=== PATIENT | female | born 1950 | race Caucasian/White ===

== ENCOUNTER 2017-12-27 09:44 | Outpatient (REF) | payer MEDICARE, SELFPAY ==
[2017-12-27 13:14] LABS: ALT 38 U/L (12-78); AST 33 U/L (15-37); Albumin 4.1 g/dL (3.4-5.0); Alkaline Phosphatase 108 U/L (46-116); Anion Gap 12.5 mmol/L (3-11); BUN 12 mg/dL (7-18); Bilirubin, Total 0.4 mg/dL (0.2-1.0); CO2 26.5 mmol/L (21.0-32.0); CREATININE 0.83 mg/dL (0.55-1.02); Calcium 9.5 mg/dL (8.5-10.1); Chloride 104 mmol/L (98-107); Cholesterol 164 mg/dL (50-200); Glucose 103 mg/dL (70-100); HDL Cholesterol 69 mg/dL (40-60); LDL CHOLESTEROL 78 mg/dL (<100); Sodium 143 mmol/L (136-145); Total Protein 7.2 g/dL (6.4-8.2); Triglyceride 90 mg/dL (30-150)
== END 2017-12-27 10:04 ==
LOC: NCHCN 09:44
PROVIDERS: PCP Nurse Practitioner Primary Care; Visit Provider Family Medicine
DX: E78.5 Hyperlipidemia, unspecified (principal); I10 Essential (primary) hypertension
CPT/HCPCS: 80053; 80061; 83721

== ENCOUNTER 2017-12-30 11:18 | Outpatient (CLI) | payer MEDICARE, SELFPAY ==
[2017-12-30 12:24] LABS: HCT 41.8 % (36.0-46.0); HGB 14.2 g/dL (12.0-15.5); Mean Corpuscular Hemoglobin 33.9 pg (27.0-33.0); Mean Corpuscular Volume 99.8 fL (80-95); Platelet Count 259 x1000/uL (130-400); RBC 4.19 m/cumm (4.00-5.20); RBC Distribution Width 13.1 % (11.7-14.6); White Blood Cell Count 7.24 k/cumm (4.4-10.8)
== END 2017-12-30 11:38 ==
PROVIDERS: PCP Nurse Practitioner Primary Care; Visit Provider Family Medicine
DX: I10 Essential (primary) hypertension (principal)
CPT/HCPCS: 36415; 85027

== ENCOUNTER 2018-01-11 00:32 | Outpatient (CLI) | payer MEDICARE, SELFPAY ==
--- NOTE | 2018-01-11 15:45 | DI.RAD_ITS ---
SYMPTOMS/DIAGNOSIS: MENOPAUSE, Z78.0 DEXA SCAN: Routine examination. Evaluation of the lateral spine shows no compression deformities. Evaluation of the left hip shows a total T score of -1.9 and a Z score of -0.7. This is consistent with osteopenia and an increased fracture risk. Evaluation of the lumbar spine shows a total T score of -0.6 and a Z score of 1.2. This is within normal limits. No evidence of osteoporosis is seen. IMPRESSION: Osteopenia in the left hip.
--- NOTE | 2018-01-11 16:03 | DI.MAMMO_ITS ---
SYMPTOM/DIAGNOSIS: SCREENING, Z12.31 MAMMOGRAMS: Mammograms were interpreted according to the usual protocol including computer analysis with CAD system, tomosynthesis and C view imaging. Comparison is made with prior examinations. Breast density, B. No masses or microcalcifications are seen. There is nothing to suggest malignancy. IMPRESSION: Negative mammogram. Routine screening is recommended. Category 1B. MQSA ASSESSMENT OF FINDINGS: Negative. Category 1. Patient will receive a letter notifying them of these results. BI-RADS category B. There are scattered areas of fibroglandular density.
== END 2018-01-11 00:52 ==
PROVIDERS: PCP Nurse Practitioner Primary Care; Visit Provider Family Medicine
DX: Z12.31 Encounter for screening mammogram for malignant neoplasm of breast (principal); M85.88 Other specified disorders of bone density and structure, other site; Z78.0 Asymptomatic menopausal state
CPT/HCPCS: 77063; 77067; 77080

== ENCOUNTER 2019-01-12 00:47 | Outpatient (CLI) | payer MEDICARE, OTHER, SELFPAY ==
--- NOTE | 2019-01-12 10:30 | DI.US_ITS ---
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 ([place]) Indications: dyspnea on exertion r06.09 Left Ventricle The left ventricle is normal size. The left ventricular systolic function is normal. The left ventric ular ejection fraction is within the normal range. Mild concentric left ventricular hypertrophy. Ther e is discrete upper septal wall thickening There is normal LV segmental wall motion. The left ventric ular diastolic function is normal. LVEF is 60-65%. Right Ventricle Right ventricle is borderline dilated. The right ventricular systolic function is normal. Atria Left atrium is borderline dilated. The coronary sinus appears mildly enlarged. Right atrium is modera tely dilated. Per patient history there is an atrial septal defect patch. There is no color flow acro ss the septum Aortic Valve Aortic valve is trileaflet. There is no aortic valvular stenosis. No aortic regurgitation is present. Mitral Valve Mitral valve leaflets are mildly thickened. No evidence of mitral valve stenosis. Mild mitral regurgi tation. Tricuspid Valve The tricuspid valve leaflets are thickened , but open well. Moderate tricuspid regurgitation. Pulmonic Valve Pulmonic valve is grossly normal in structure. Trace pulmonic regurgitation. Great Vessels The aortic root is normal in size. normal Pericardium There is no pericardial effusion. 2D Dimensions IVSd 1.3 cm F: 0.6-1.0 LA Volume Index A4C 34.0 mL/m2 PWd 1.1 cm F: 0.6 - 1.0 LA Area A4C 17.0 cm2 LVDd 4.7 cm F: 3.9 - 5.3 LVDs 3.1 cm F: 2.2 - 3.5 Aortic Root 3.0 cm F: 2.7 - 3.3 RA Area A4C 13.0 cm2 LVOT 2.1 cm (M/F) 1.5-2.5 LVEF ([facility]'s) 67.9 % F: 54 - 74 LV Volume 54.3 mL F: 46 - 106 LV Volume Index 35.0 mL/m2 F: 29 - 61 FS 33.9 % LV Diastology E Decel Time 220.0 (160-240 msec) E/A Ratio 1.1 MED E' 0.1 (<0.07 m/s) LV E/e MED 13.5 (>14) LAT E' 0.1 (<0.1 m/s) LV E/e LAT 13.9 (>14) Aortic Valve LVOT Peak Jose. 1.2 m/s LVOT Peak Gr. 5.9 mmHg LVOT Mean Gr. 3.0 mmHg LVOT VTI 0.3 m REGGIE (VTI) 2.8 (2.5-4.5 cm2) REGGIE (VTI) Index 1.8 cm/m2 Mitral Valve MV E Max Jose. 1.2 (0.4-1.3 m/s) MV A Velocity 1.1 (0.4-1.3 m/s) E/A Ratio 1.0 MV Decel. Time 219.5 (160-240 msec) MV PHT 63.7 msec MVA PHT 3.5 cm2 Pulmonary Valve RVOT Mean Gr. 0.8 mmHg RVOT VTI 0.1 m Tricuspid Valve TR P. Velocity 3.2 m/s TR P. Gradient 42.1 mmHg Conclusion Left Ventricle : The left ventricle is normal size. Mild concentric left ventricular hypertrophy. The re is discrete upper septal wall thickening The left ventricular diastolic function is normal. The le ft ventricular systolic function is normal. The left ventricular ejection fraction is within the norm al range. There is normal LV segmental wall motion. Right Ventricle : Right ventricle is borderline dilated. The right ventricular systolic function is n ormal. Atria : Left atrium is borderline dilated. Right atrium is moderately dilated. Per patient history t here is an atrial septal defect patch. There is no color flow across the septum to suggest residual defect. The coronary sinus is mildly enlarged which can be seen with right atrial pathology/enlargem ent. Without a bubble study it is unclear whether patient has persistent left-sided SVC versus right atrial enlargement from prior ASD. Aortic Valve : Aortic valve is trileaflet. No aortic regurgitation is present. There is no aortic tony vular stenosis. Mitral Valve : Mitral valve leaflets are mildly thickened. Mild mitral regurgitation. No evidence of mitral valve stenosis. Tricuspid Valve : The tricuspid valve leaflets are thickened , but open well. Moderate tricuspid regu rgitation. Pulmonic Valve : Pulmonic valve is grossly normal in structure. Trace pulmonic regurgitation. Sinus rhythm was present throughout There are no prior echo is available for comparison
== END 2019-01-12 01:07 ==
PROVIDERS: PCP Family Medicine; Visit Provider Family Medicine
DX: R06.09 Other forms of dyspnea (principal); I35.8 Other nonrheumatic aortic valve disorders; I36.1 Nonrheumatic tricuspid (valve) insufficiency; I10 Essential (primary) hypertension
CPT/HCPCS: 93306

== ENCOUNTER 2019-11-20 01:05 | Outpatient (CLI) | payer MEDICARE, SELFPAY ==
--- NOTE | 2019-11-20 | DI.MAMMO_ITS ---
EXAM: MAMMO SCREENING CLINICAL HISTORY: SCREENING, TECHNIQUE: Mammograms were interpreted according to the usual protocol including computer analysis w [employer] CAD system, tomosynthesis and C-view imaging. COMPARISON: 2017 and 2018 FINDINGS: The breasts are composed of scattered fibroglandular densities, Breast Density category B. No suspicious masses or suspicious microcalcifications are seen. No skin thickening or abnormal axillary lymph nodes are seen. There has been no significant change from prior exams. IMPRESSION: BI-RADS Category 1, Negative mammogram Yearly screening mammography is recommended. Breast Density Category B, scattered fibroglandular densities. A negative radiographic report should not delay biopsy if a dominant or clinically suspicious mass is present. Up to ten percent of cancers are not identified on mammography. A negative report may reinforce clinical impression. Adenosis and dense breasts may obscure an underlying neoplasm. False positive reports average 6 to 10%. Patient will receive a letter notifying them of these results.
== END 2019-11-20 01:25 ==
PROVIDERS: PCP Family Medicine; Visit Provider Family Medicine
DX: Z12.31 Encounter for screening mammogram for malignant neoplasm of breast (principal); R92.2 Inconclusive mammogram
CPT/HCPCS: 77063; 77067

== ENCOUNTER 2020-04-11 13:50 | Outpatient (REF) | payer MEDICARE, SELFPAY ==
[2020-04-11 13:53] LABS: HCT 46.2 % (36.0-46.0); MCH 34.9 pg (27.0-33.0); MCHC 34.6 % (32.0-36.0); MCV 100.9 fL (80-95); MPV 10.9 fL (8.0-11.0); Platelet Count 241 10^3/uL (130-400); RBC 4.58 10^6/uL (3.93-5.22); RDW 12.3 % (11.7-14.6); RDW-SD 46.5 fL
[2020-04-11 14:40] LABS: ALT 27 U/L (14-59); AST 23 U/L (15-37); Albumin 4.2 g/dL (3.4-5.0); Alkaline Phosphatase 79 U/L (46-116); BUN 13 mg/dL (7-18); Bilirubin, Total 0.6 mg/dL (0.2-1.0); CREATININE 1.02 mg/dL (0.55-1.02); Calcium 9.3 mg/dL (8.5-10.1); Calculated LDL 81 mg/dL (<100); Chloride 104 mmol/L (98-107); Cholesterol 176 mg/dL (<200); Estimated GFR 54.05 (mL/min/1.73m2); Glucose 95 mg/dL (74-106); HDL Cholesterol 84 mg/dL (40-60); Potassium 3.9 mmol/L (3.5-5.1); Sodium 143 mmol/L (136-145); Total Protein 7.4 g/dL (6.4-8.2); Triglyceride 58 mg/dL (<150)
== END 2020-04-11 14:10 ==
LOC: NCHCN 13:50
PROVIDERS: PCP Family Medicine; Visit Provider Family Medicine
DX: E78.5 Hyperlipidemia, unspecified (principal); I10 Essential (primary) hypertension
CPT/HCPCS: 80053; 80061; 85027

== ENCOUNTER 2021-05-19 09:02 | Outpatient (REF) | payer MEDICARE, SELFPAY ==
[2021-05-19 18:50] LABS: ALT 26 U/L (14-59); AST 21 U/L (15-37); Albumin 4.2 g/dL (3.4-5.0); Alkaline Phosphatase 86 U/L (46-116); Anion Gap 10.9 mmol/L (3-11); BUN 8 mg/dL (7-18); Bilirubin, Total 0.4 mg/dL (0.2-1.0); CO2 27.1 mmol/L (21.0-32.0); Calcium 9.7 mg/dL (8.5-10.1); Calculated LDL 87 mg/dL (<100); Chloride 105 mmol/L (98-107); Cholesterol 191 mg/dL (<200); Estimated GFR 55.14 (mL/min/1.73m2); Glucose 86 mg/dL (74-106); HDL Cholesterol 80 mg/dL (40-60); Potassium 4.3 mmol/L (3.5-5.1); Sodium 143 mmol/L (136-145); Total Protein 7.5 g/dL (6.4-8.2); Triglyceride 122 mg/dL (<150)
[2021-05-19 19:43] LABS: HCT 47.2 % (36.0-46.0); HGB 15.5 g/dL (11.2-15.7); MCH 33.9 pg (27.0-33.0); MCHC 32.8 % (32.0-36.0); MCV 103.3 fL (80-95); RBC 4.57 10^6/uL (3.93-5.22); RDW 12.8 % (11.7-14.6); RDW-SD 49.3 fL; WBC 6.76 10^3/uL (4.4-10.8)
== END 2021-05-19 09:03 | disposition home or self-care (01) ==
LOC: NCHCN 09:02
PROVIDERS: PCP Family Medicine; Visit Provider Family Medicine
DX: E78.5 Hyperlipidemia, unspecified (principal); I10 Essential (primary) hypertension; R51.9 Headache, unspecified
CPT/HCPCS: 80053; 80061; 85027

== ENCOUNTER 2021-06-02 01:16 | Outpatient (CLI) | payer MEDICARE, SELFPAY ==
--- NOTE | 2021-06-02 | DI.MAMMO_ITS ---
Exam(s) MAMMO SCREENING EXAM: MAMMO SCREENING CLINICAL HISTORY: SCREENING MAMMO FOR BREAST CANCER Z12.31 TECHNIQUE: Mammograms were interpreted according to the usual protocol including computer analysis w [employer] CAD system, tomosynthesis and C-view imaging. COMPARISON: 2016 through 2019 FINDINGS: The breasts are composed of scattered fibroglandular densities, Breast Density category B. No suspicious masses or suspicious microcalcifications are seen. No skin thickening or abnormal axillary lymph nodes are seen. There has been no significant change from prior exams. IMPRESSION: BI-RADS Category 1, Negative mammogram Yearly screening mammography is recommended. Breast Density - Category B, scattered fibroglandular densities. A negative radiographic report should not delay biopsy if a dominant or clinically suspicious mass is present. Up to ten percent of cancers are not identified on mammography. A negative report may reinforce clinical impression. Adenosis and dense breasts may obscure an underlying neoplasm. False positive reports average 6 to 10%. Patient will receive a letter notifying them of these results.
== END 2021-06-02 01:36 ==
PROVIDERS: PCP Family Medicine; Visit Provider Family Medicine
DX: Z12.31 Encounter for screening mammogram for malignant neoplasm of breast (principal)
CPT/HCPCS: 77063; 77067

== ENCOUNTER 2022-09-03 02:54 | Outpatient (CLI) | payer MEDICARE, SELFPAY ==
--- NOTE | 2022-09-03 | DI.CTLCSR_ITS ---
Exam(s) CT CHEST LUNG CANCER SCREEN EXAM: CT CHEST LUNG CANCER SCREEN CLINICAL HISTORY: HX OF SMOKING Z87.891 SCREENING FOR LUNG CANCER. TECHNIQUE: Imaging Protocol: Low Dose Technique CONTRAST MATERIAL: None COMPARISON: No exams were available for comparison FINDINGS: CHEST: LUNGS: There is a 1.3 cm partially calcified granuloma in the right lower lobe. No other significant focal right lung findings. The left lung there is some platelike atelectasis in the lingular segmen t basal segments. No ominous pulmonary nodules nor pleural effusions.. There are no confluent infil trates. MEDIASTINUM: There is no obvious hilar nor mediastinal adenopathy. CARDIAC: Cannot be wires. Heart size normal. No pericardial effusion.Caliber of the thoracic aorta is within normal limits. OTHER: Fusion plate in the lower cervical spine.. Thickening of the left adrenal gland noted. Also asymmetric appearance of the partially included left kidney and there is also a nonobstructive calcul us in left kidney. OSSEOUS: No significant osseous lesions.. IMPRESSION: 1. Benign-appearing partially calcified 1.3 cm nodule in the right lower lobe. 2. Atelectasis in the left lung base. No pleural effusions. 3. Lung RADS Cat 2S - Benign Appearance / Behavior: Nodules with a very low likelihood of becoming a clinically active cancer due to size or lack of growth Other findings as above. May require follow-up. Lung-RADS 1.0 CATEGORIES: Category 0 - Prior chest CT exam(s) being located for comparison. Category 1 - Annual screening in 12 months. No nodules or definitely benign nodules. Category 2 - Annual screening in 12 months. Benign appearance. Nodules with low likelihood of becomin g active cancer. Category 3 - 6-month follow-up. Probably benign. Short-term follow-up suggested. Nodules with low lik elihood of becoming active cancer. Category 4A - 3-month follow-up and CT/PET if >8 mm in size. Suspicious finding. Findings which requi re additional testing. Category 4B - Findings which require additional testing and tissue sampling. Category 4X - Category 3 or 4 nodules with additional features or imaging findings that increases the suspicion of malignancy. Modifier S- Potentially clinically significant findings (non lung cancer) RADIATION DOSE DELIVERED: 78.8mGy.cm Total DLP DATA REPOSITORY: All CT scans at this facility are submitted to the National Radiology Data Registry (NRDR) Dose Index Registry (DIR) with the [employer] (ACR). RADIATION OPTIMIZATION: All CT scans at this facility use at least one of these dose optimization te chniques: automated exposure control; mA and/or kV adjustment per patient size (includes targeted exa ms where dose is matched to clinical indication); or iterative reconstruction.
== END 2022-09-03 03:14 ==
LOC: DI 02:54
PROVIDERS: PCP Family Medicine; Visit Provider Family Medicine
DX: Z12.2 Encounter for screening for malignant neoplasm of respiratory organs (principal); Z87.891 Personal history of nicotine dependence; R91.1 Solitary pulmonary nodule
CPT/HCPCS: 71271

== ENCOUNTER 2023-08-06 16:17 | Outpatient (REF) | payer MEDICARE, SELFPAY ==
[2023-08-06 21:06] LABS: HCT 41.6 % (36.0-46.0); MCH 33.9 pg (27.0-33.0); MCHC 33.7 % (32.0-36.0); MCV 101 fL (80-95); MPV 11.2 fL (8.0-11.0); Platelet Count 218 10^3/uL (130-400); RBC 4.13 10^6/uL (3.93-5.22); RDW 12.8 % (11.7-14.6); RDW-SD 47.9 fL; WBC 9.47 10^3/uL (4.4-10.8)
[2023-08-06 21:23] LABS: ALT 26 U/L (14-59); AST 27 U/L (15-37); Albumin 4.6 g/dL (3.4-5.0); Alkaline Phosphatase 61 U/L (46-116); Anion Gap 10.9 mmol/L (3-11); BUN 15 mg/dL (7-18); Bilirubin, Total 0.3 mg/dL (0.2-1.0); CO2 29.1 mmol/L (21.0-32.0); CREATININE 1.1 mg/dL (0.55-1.02); Calculated LDL 170 mg/dL (<100); Chloride 101 mmol/L (98-107); Cholesterol 291 mg/dL (<200); Estimated GFR 54.06 (mL/min/1.73m2); Glucose 92 mg/dL (74-106); HDL Cholesterol 102 mg/dL (40-60); Potassium 4.1 mmol/L (3.5-5.1); Sodium 141 mmol/L (136-145); Total Protein 7.6 g/dL (6.4-8.2); Triglyceride 96 mg/dL (<150)
[2023-08-06 22:02] LABS: Vitamin D 25 Total 72.8 ng/mL (30-100)
== END 2023-08-06 16:18 | disposition home or self-care (01) ==
LOC: NCHCN 16:17
PROVIDERS: PCP Family Medicine; Visit Provider Family Medicine
DX: Z00.00 Encounter for general adult medical examination without abnormal findings (principal); E78.00 Pure hypercholesterolemia, unspecified; R94.4 Abnormal results of kidney function studies; R79.89 Other specified abnormal findings of blood chemistry
CPT/HCPCS: 80053; 80061; 82306; 85027

== ENCOUNTER → 2023-08-26 04:28 | Outpatient (CLI) | payer MEDICARE, SELFPAY ==
--- NOTE | 2023-08-26 | DI.MAMMO_ITS ---
Exam(s) MAMMO SCREENING EXAM: MAMMO SCREENING CLINICAL HISTORY: Z12.31 Screening. TECHNIQUE: Bilateral full field digital CC and MLO mammographic images were obtained with 3D tomosyn thesis and utilizing computer aided detection (CAD). COMPARISON: Prior mammograms were reviewed. FINDINGS: There has been no significant change in the appearance and distribution of the fibroglandular tissue. There are no new spiculated masses nor malignant appearing microcalcification groups. There is no significant architectural distortion nor skin thickening-retraction. IMPRESSION: No radiographic evidence of malignancy. BI-RADS Category 1 - Negative Breast Density - Category B - Scattered areas of fibroglandular density Breast density Category C or D implies that the patient has dense breast tissue. Dense breast tissue can make it harder to find cancer on a mammogram. Dense breast tissue is also associated with an incr eased risk of breast cancer. This information about the result of the mammogram report was provided to the patient to raise their awareness. Use this report when you speak with the patient about their risks for breast cancer, which includes their family history. At that time, you may recommend additional screening tests (Ultrasoun d or MRI) as these tests may add significant information. A negative radiographic report should not delay biopsy if a dominant or clinically suspicious mass is present. Up to ten percent of cancers are not identified on mammography. A negative report may reinforce clinical impression. Adenosis and dense breasts may obscure an underlying neoplasm. False positive reports average 6 to 10%. Patient will receive a letter notifying them of these results.
== END ==
PROVIDERS: PCP Family Medicine; Visit Provider Family Medicine
DX: Z12.31 Encounter for screening mammogram for malignant neoplasm of breast (principal)
CPT/HCPCS: 77063; 77067

== ENCOUNTER 2024-01-13 01:37 | Outpatient (CLI) | payer MEDICARE, SELFPAY ==
--- NOTE | 2024-01-13 | DI.DEXA_ITS ---
Exam(s) XR DEXA BONE DENSITY W/WO MONAE EXAM: XR DEXA BONE DENSITY W/WO MONAE CLINICAL HISTORY: DISORDER BONE DENSITY M85.88 TECHNIQUE: [employer] C densitometer analysis of left hip, lumbar spine and left forearm. Lat eral survey image of the thoracic and lumbar spine. COMPARISON: DX XR DEXA BONE DENSITY W/WO MONAE from 01/11/2018 FINDINGS: Lateral view of the thoracic and lumbar spine shows no evidence of compression fractures. Bone mineral density measurements of the lumbar spine correspond to a total T-score of -0.7, in the normal range. This is not significantly changed from the prior exam. Bone mineral density measurements of the left hip correspond to a total T-score of -2.0. This is no t significantly changed from the prior exam. The femoral neck T-score is -2.0, in the osteopenic ra nge.. Theleft forearm bone mineral density measurements correspond to a T-score of the distal 3rd of -2.7, in the osteoporotic range. This is not significantly changed from prior exam. . IMPRESSION: Normal bone mineral density of the spine. Osteopenia of the hip. Osteoporosis of the forearm.
== END 2024-01-13 01:57 ==
PROVIDERS: PCP Family Medicine; Visit Provider Family Medicine
DX: M85.88 Other specified disorders of bone density and structure, other site (principal)
CPT/HCPCS: 77080

== ENCOUNTER 2024-08-22 18:36 | Outpatient (REF) | payer MEDICARE, SELFPAY ==
[2024-08-22 16:56] LABS: ALT 29 U/L (14-59); AST 27 U/L (15-37); Albumin 4.5 g/dL (3.4-5.0); Alkaline Phosphatase 67 U/L (46-116); Anion Gap 9.2 mmol/L (3-11); BUN 23 mg/dL (7-18); Bilirubin, Total 0.4 mg/dL (0.2-1.0); CO2 29.8 mmol/L (21.0-32.0); CREATININE 0.9 mg/dL (0.55-1.02); Calcium 10.1 mg/dL (8.5-10.1); Calculated LDL 83 mg/dL (<100); Chloride 101 mmol/L (98-107); Cholesterol 202 mg/dL (<200); Estimated GFR 68.35 (mL/min/1.73m2); Glucose 104 mg/dL (74-106); HDL Cholesterol 106 mg/dL (>or=50); Potassium 4.1 mmol/L (3.5-5.1); Sodium 140 mmol/L (136-145); Total Protein 7.8 g/dL (6.4-8.2); Triglyceride 68 mg/dL (<150)
[2024-08-23 11:07] LABS: Hepatitis C Ab w Rflx HCV PCR Negative (Negative)
== END 2024-08-22 18:37 | disposition home or self-care (01) ==
LOC: NCHCN 18:36
PROVIDERS: PCP Family Medicine; Visit Provider Family Medicine
DX: E78.5 Hyperlipidemia, unspecified (principal); I10 Essential (primary) hypertension; Z11.59 Encounter for screening for other viral diseases
CPT/HCPCS: 80053; 80061; 86803

== ENCOUNTER 2024-08-31 02:49 | Outpatient (CLI) | payer MEDICARE, SELFPAY ==
--- NOTE | 2024-08-31 | DI.CTLCSR_ITS ---
Exam(s) CT CHEST LUNG CANCER SCREEN EXAM: CT CHEST LUNG CANCER SCREEN CLINICAL HISTORY: HX TOBACCO ABUSE, Z87.891, PERSONAL H/O NICOTINE DEPENDENCE. TECHNIQUE: Imaging Protocol: Low Dose Technique CONTRAST MATERIAL: None COMPARISON: CT CT CHEST LUNG CANCER SCREEN from 09/03/2022 FINDINGS: CHEST: LUNGS: Again noted is a previously described partially calcified 1.4 cm granuloma in the right lower lobe, unchanged. There are no new ominous pulmonary nodules, infiltrates, nor pleural effusions.. MEDIASTINUM: There is no obvious hilar nor mediastinal adenopathy. CARDIAC: Sternotomy wires are again noted. Heart size is normal. There is no pericardial effusion.C aliber of the thoracic aorta is within normal limits. OTHER: OSSEOUS: No significant osseous lesions.. IMPRESSION: 1. Stable benign-appearing partially calcified 1.4 cm right lower lobe nodule 2. No new significant pulmonary findings and no pleural effusions. 3. Lung RADS Cat 2 - Benign Appearance / Behavior: Nodules with a very low likelihood of becoming a c linically active cancer due to size or lack of growth Lung-RADS 1.0 CATEGORIES: Category 0 - Prior chest CT exam(s) being located for comparison. Category 1 - Annual screening in 12 months. No nodules or definitely benign nodules. Category 2 - Annual screening in 12 months. Benign appearance. Nodules with low likelihood of becomin g active cancer. Category 3 - 6-month follow-up. Probably benign. Short-term follow-up suggested. Nodules with low lik elihood of becoming active cancer. Category 4A - 3-month follow-up and CT/PET if >8 mm in size. Suspicious finding. Findings which requi re additional testing. Category 4B - Findings which require additional testing and tissue sampling. Category 4X - Category 3 or 4 nodules with additional features or imaging findings that increases the suspicion of malignancy. Modifier S- Potentially clinically significant findings (non lung cancer) RADIATION DOSE DELIVERED: 22.74mGy.cm Total DLP DATA REPOSITORY: All CT scans at this facility are submitted to the National Radiology Data Registry (NRDR) Dose Index Registry (DIR) with the [employer] (ACR). RADIATION OPTIMIZATION: All CT scans at this facility use at least one of these dose optimization te chniques: automated exposure control; mA and/or kV adjustment per patient size (includes targeted exa ms where dose is matched to clinical indication); or iterative reconstruction.
== END 2024-08-31 03:09 ==
LOC: DI 02:49
PROVIDERS: PCP Family Medicine; Visit Provider Family Medicine
DX: Z87.891 Personal history of nicotine dependence (principal); Z12.2 Encounter for screening for malignant neoplasm of respiratory organs; R91.1 Solitary pulmonary nodule
CPT/HCPCS: 71271